=== PATIENT | male | born 1995 | race American Indian/Alaskan Native ===

== ENCOUNTER 2017-07-17 10:19 | Emergency (ER) | payer SELFPAY ==
[2017-07-17] MEDS ORDERED: ZOFRAN ODT PO ONE (16:19)
[2017-07-17] MEDS ORDERED: GUAIFENESIN DM SYRUP PO ONE (16:19)
[2017-07-17] MEDS ORDERED: MOTRIN PO ONE (16:19)
--- NOTE | 2017-07-17 16:21 | Emergency Department Report ---
- General Chief Complaint: Upper Respiratory Infection Stated Complaint: COUGHING UP BLOOD Time Seen by Provider: 07/17/17 15:45 Source: patient Mode of arrival: Ambulatory Limitations: No Limitations - History of Present Illness Initial Comments: 21-year-old male presents with complaint of 2 days of malaise fever chills cough sore throat and some intermittent nausea. Also complaining of body aches. Patient states he has had persistent cough for 2 days. Possible sick contacts at work as per patient. Patient is awake alert and oriented 3 not in acute distress. States he has been slightly feeling slightly more fatigued than usual lately. MD Complaint: fever, cough, sore throat, rhinorrhea, nasal congestion Onset/Timin -: days(s) Severity: mild Consistency: intermittent Improves With: nothing Worsens With: nothing Context: sick contacts Associated Symptoms: chills, myalgias, rhinorrhea, nasal congestion, cough Treatments Prior to Arrival: none - Related Data Previous Rx's Medication Instructions Recorded Last Taken Type Ibuprofen [Motrin 800 MG tab] 800 mg PO Q8H #30 tablet 08/16/14 Unknown Rx Albuterol Sulfate [Ventolin Hfa] 1 puff IH Q4H PRN #1 hfa.aer.ad 07/17/17 Unknown Rx Dextromethorphan/Benzocaine 1 each PO Q4H PRN #1 lozenge 07/17/17 Unknown Rx [Cepacol Sorethroat-Cough Juwan] Ibuprofen [Motrin] 800 mg PO Q8HR PRN #30 tablet 07/17/17 Unknown Rx Oseltamivir [Tamiflu] 75 mg PO BID #10 cap 07/17/17 Unknown Rx Phenylephrine/Dm/Acetaminop/GG 10 ml PO Q6H PRN #1 liquid 07/17/17 Unknown Rx [Mucinex Rstf-Mth-Pgxysxdpcl Lq] Allergies Allergy/AdvReac Type Severity Reaction Status Date / Time No Known Allergies Allergy Unverified 08/16/14 09:05 ED Review of Systems ROS: Stated complaint: COUGHING UP BLOOD Other details as noted in HPI Constitutional: malaise. denies: chills, fever Eyes: denies: eye pain, eye discharge, vision change ENT: congestion. denies: ear pain, throat pain Respiratory: cough. denies: shortness of breath, wheezing Cardiovascular: denies: chest pain, palpitations Endocrine: no symptoms reported Gastrointestinal: denies: abdominal pain, nausea, diarrhea Genitourinary: denies: urgency, dysuria Musculoskeletal: denies: back pain, joint swelling, arthralgia Skin: denies: rash, lesions Neurological: denies: headache, weakness, paresthesias Psychiatric: denies: anxiety, depression Hematological/Lymphatic: denies: easy bleeding, easy bruising ED Past Medical Hx - Past Medical History Previous Medical History?: Yes Hx Asthma: Yes - Surgical History Past Surgical History?: No - Social History Smoking Status: Current Every Day Smoker Substance Use Type: Alcohol, Non Opiate Pain, Other - Medications Home Medications: Home Medications Medication Instructions Recorded Confirmed Last Taken Type Ibuprofen [Motrin 800 MG tab] 800 mg PO Q8H #30 tablet 08/16/14 Unknown Rx Albuterol Sulfate [Ventolin Hfa] 1 puff IH Q4H PRN #1 hfa.aer.ad 07/17/17 Unknown Rx Dextromethorphan/Benzocaine 1 each PO Q4H PRN #1 lozenge 07/17/17 Unknown Rx [Cepacol Sorethroat-Cough Juwan] Ibuprofen [Motrin] 800 mg PO Q8HR PRN #30 tablet 07/17/17 Unknown Rx Oseltamivir [Tamiflu] 75 mg PO BID #10 cap 07/17/17 Unknown Rx Phenylephrine/Dm/Acetaminop/GG 10 ml PO Q6H PRN #1 liquid 07/17/17 Unknown Rx [Mucinex Uhad-Dfy-Zmqfxecbmi Lq] ED Physical Exam - General Limitations: No Limitations General appearance: alert, in no apparent distress - Head Head exam: Present: atraumatic, normocephalic - Eye Eye exam: Present: normal appearance, PERRL, EOMI - ENT ENT exam: Present: normal exam, mucous membranes moist - Neck Neck exam: Present: normal inspection - Respiratory Respiratory exam: Present: normal lung sounds bilaterally. Absent: respiratory distress - Cardiovascular Cardiovascular Exam: Present: regular rate, normal rhythm. Absent: systolic murmur, diastolic murmur, rubs, gallop - GI/Abdominal GI/Abdominal exam: Present: soft, normal bowel sounds - Rectal Rectal exam: Present: deferred - Extremities Exam Extremities exam: Present: normal inspection - Back Exam Back exam: Present: normal inspection - Neurological Exam Neurological exam: Present: alert, oriented X3, CN II-XII intact, normal gait - Psychiatric Psychiatric exam: Present: normal affect, normal mood - Skin Skin exam: Present: warm, dry, intact, normal color. Absent: rash ED Course Vital Signs 07/17/17 07/17/17 10:23 18:12 Temperature 98.5 F 98.4 F Pulse Rate 65 68 Respiratory 20 16 Rate Blood Pressure 125/73 Blood Pressure 132/74 [Left] O2 Sat by Pulse 99 100 Oximetry ED Medical Decision Making - Lab Data Result diagrams: 07/17/17 16:36 07/17/17 16:36 - Medical Decision Making A/P: Flulike illness 1-labs and chest x-ray unremarkable. Mild elevated CK, patient tolerating by mouth fluid and food without difficulty 2-I discussed with patient that his symptoms are suggestive of influenza. Flu swab negative however as per CDC guidelines should not delay offering treatment despite negative flu swab. I discussed with patient the benefits and side effects of taking Tamiflu. At this time patient elects to take Tamiflu based on our discussion of his clinical symptoms. 3-Mucinex when necessary, albuterol inhaler when necessary, Motrin when necessary, throat lozenges when necessary Critical care attestation.: If time is entered above; I have spent that time in minutes in the direct care of this critically ill patient, excluding procedure time. ED Disposition Clinical Impression: Flu-like symptoms, Viral syndrome Disposition: DC-01 TO HOME OR SELFCARE Is pt being admited?: No Does the pt Need Aspirin: No Condition: Stable Instructions: Influenza (ED), Viral Syndrome (ED) Prescriptions: Albuterol Sulfate [Ventolin Hfa] 1 puff IH Q4H PRN #1 hfa.aer.ad PRN Reason: Wheezing Dextromethorphan/Benzocaine [Cepacol Sorethroat-Cough Juwan] 1 each PO Q4H PRN #1 lozenge PRN Reason: Sore Throat Ibuprofen [Motrin] 800 mg PO Q8HR PRN #30 tablet PRN Reason: Fever Oseltamivir [Tamiflu] 75 mg PO BID #10 cap Phenylephrine/Dm/Acetaminop/GG [Mucinex Iwjp-Avj-Kubjxjsgsf Lq] 10 ml PO Q6H PRN #1 liquid PRN Reason: Cough Referrals: [facility] [Outside] - 3-5 Days [facility] [place] [facility] [place] - 3-5 Days Forms: Work/School Release Form(ED) Time of Disposition: 18:33
[2017-07-17 16:57] LABS: Basophils # (Auto) 0.1 K/mm3 (0.0-0.1); Basophils % (Auto) 0.8 % (0.0-1.8); Eosinophils # (Auto) 0.1 K/mm3 (0.0-0.4); Eosinophils % (Auto) 1.1 % (0.0-4.3); Hematocrit 48.9 % (35.5-45.6); Hemoglobin 16.5 gm/dl (11.8-15.2); Lymphocytes # (Auto) 2.3 K/mm3 (1.2-5.4); Lymphocytes % (Auto) 28.1 % (13.4-35.0); Mean Corpuscular HGB Conc 34 % (32-34); Mean Corpuscular Hemoglobin 33 pg (28-32); Mean Corpuscular Volume 98 fl (84-94); Monocytes # (Auto) 0.8 K/mm3 (0.0-0.8); Monocytes % (Auto) 9.6 % (0.0-7.3); Platelet Count 228 K/mm3 (140-440); Red Blood Count 5.01 M/mm3 (3.65-5.03); Red Cell Distribution Width 12.8 % (13.2-15.2)
[2017-07-17 17:11] LABS: BUN/Creatinine Ratio 14; Blood Urea Nitrogen 10 mg/dL (9-20); Calcium 10.1 mg/dL (8.4-10.2); Hemolysis Index 13
[2017-07-17] MEDS ORDERED: DUONEB *Not for PRN Use IH ONE (17:18)
--- NOTE | 2017-07-17 17:39 | XRay Report ---
FINAL REPORT EXAM: XR CHEST ROUTINE 2V HISTORY: worsening cough; PNA Study Comment : MIDDLE CHEST PAIN, COUGH W/BLOOD X 3 DAYS TECHNIQUE: 2 view examination of the chest PRIORS: None FINDINGS: There is no visible pulmonary consolidation, pleural effusion, or pneumothorax. Cardiac silhouette size is normal without vascular congestion. No visible acute displaced fracture in the regional skeleton. IMPRESSION: No evidence of acute cardiopulmonary disease
[2017-07-17 18:13] VITALS: BP 132/74
== END 2017-07-17 19:05 | disposition home or self-care (01) ==
LOC: ED 10:19
DX: B34.9 Viral infection, unspecified (principal); J45.909 Unspecified asthma, uncomplicated; F17.200 Nicotine dependence, unspecified, uncomplicated
CPT/HCPCS: 36415; 71046; 80048; 82550; 85025; 87116; 87400; 87430; 94640; Q0162

== ENCOUNTER 2019-08-23 17:40 | Emergency (ER) | payer SELFPAY ==
--- NOTE | 2019-08-23 17:52 | Event Note ---
ED Screening Note Date of service: 08/23/19 Time: 17:49 ED Screening Note: This is a 23 y.o. M. that presents to the ER with right wrist and ankle pain. Patient states he took a bad fall while playing basketball yesterday. Reports feeling his ankle twist when he fell. This initial assessment/diagnostic orders/clinical plan/treatment(s) is/are subject to change based on patients health status, clinical progression and re- assessment by fellow clinical providers in the ED. Further treatment and workup at subsequent clinical providers discretion. Patient/guardian urged not to elope from the ED as their condition may be serious if not clinically assessed and managed. Initial orders include: XR right wrist and right ankle
[2019-08-23 17:58] VITALS: BP 114/72
--- NOTE | 2019-08-23 19:25 | XRay Report ---
RIGHT WRIST 3 VIEWS INDICATION / CLINICAL INFORMATION: Fall with right wrist pain. COMPARISON: None available. FINDINGS: BONES / JOINT(S): The joint spaces are well-maintained. There is no evidence of fracture or dislocati on. SOFT TISSUES: No significant abnormality. ADDITIONAL FINDINGS: None. IMPRESSION: No acute abnormality. Signer Name: Vincent Edwards MD Signed: 08/23/2019 7:20 PM Workstation Name: [id number]
--- NOTE | 2019-08-23 19:26 | XRay Report ---
RIGHT ANKLE 2 VIEWS INDICATION / CLINICAL INFORMATION: Fall with right lateral ankle pain. COMPARISON: None available. FINDINGS: BONES / JOINT(S): The joint spaces are well-maintained. There is no evidence of fracture or dislocati on. SOFT TISSUES: No significant abnormality. ADDITIONAL FINDINGS: None. IMPRESSION: No acute abnormality. Signer Name: Vincent Edwards MD Signed: 08/23/2019 7:21 PM Workstation Name: [id number]
[2019-08-23] MEDS ORDERED: ONDANSETRON 4 MG ODT TAB PO ONE (19:56)
[2019-08-23] MEDS ORDERED: HYDROcodone/ACETAMINOPHEN 5-325 MG TAB PO ONE (19:56)
[2019-08-23] MEDS ORDERED: IBUPROFEN 600 MG TAB PO ONE (19:56)
--- NOTE | 2019-08-23 20:29 | Emergency Department Report ---
ED Fall HPI - General Chief Complaint: Extremity Injury, Lower Stated Complaint: RT WRIST/RT ANKLE PAIN Time Seen by Provider: 08/23/19 17:44 Source: patient Mode of arrival: Ambulatory - History of Present Illness Initial Comments: Patient is a 23-year-old male who presented to the ED with acute onset persistent severe right wrist and right ankle pain with mild swelling after he tripped and fell while playing basketball 2 days ago. Patient states that he is unable to bear weight on the right ankle and wrist. Patient denies head or neck injuries, loss of consciousness, syncope, seizures, nausea, vomiting, back pain, chest pain, shortness of breath, numbness and tingling or weakness of upper and lower extremities bilaterally or hip pain. 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 denies: headache, neck pain, numbness, weakness, chest paint, shortness of breath, abdominal pain, lightheaded, vertigo, confusion, other - Related Data Previous Rx's Medication Instructions Recorded Last Taken Type Ibuprofen [Motrin 800 MG tab] 800 mg PO Q8H #30 tablet 08/16/14 Unknown Rx Albuterol Sulfate [Ventolin Hfa] 1 puff IH Q4H PRN #1 hfa.aer.ad 07/17/17 Unknown Rx Dextromethorphan/Benzocaine 1 each PO Q4H PRN #1 lozenge 07/17/17 Unknown Rx [Cepacol Sorethroat-Cough Juwan] Oseltamivir [Tamiflu] 75 mg PO BID #10 cap 07/17/17 Unknown Rx Phenylephrine/Dm/Acetaminop/GG 10 ml PO Q6H PRN #1 liquid 07/17/17 Unknown Rx [Mucinex Gmgd-Ivz-Uyfqavtozq Lq] Acetaminophen/Codeine [Tylenol 1 tab PO Q6H PRN #12 tab 08/23/19 Unknown Rx /Codeine # 3 tab] Cyclobenzaprine [Flexeril] 10 mg PO Q8H PRN #21 tablet 08/23/19 Unknown Rx Ibuprofen [Motrin 800 MG tab] 800 mg PO Q8HR PRN #30 tablet 08/23/19 Unknown Rx Allergies Allergy/AdvReac Type Severity Reaction Status Date / Time No Known Allergies Allergy Unverified 08/16/14 09:05 ED Review of Systems ROS: Stated complaint: RT WRIST/RT ANKLE PAIN Other details as noted in HPI Constitutional: denies: chills, fever Eyes: denies: eye pain, eye discharge, vision change ENT: denies: ear pain, throat pain, congestion Respiratory: denies: cough, shortness of breath, wheezing Cardiovascular: denies: chest pain, palpitations, edema, syncope, paroxysmal nocturnal dyspnea Endocrine: no symptoms reported Gastrointestinal: denies: abdominal pain, nausea, diarrhea Genitourinary: denies: urgency, dysuria Musculoskeletal: joint swelling (Right ankle and right wrist pain and swelling), arthralgia (Right wrist and ankle pain with swelling), myalgia. denies: back pain Skin: denies: rash, lesions Neurological: denies: headache, weakness, paresthesias Psychiatric: denies: anxiety, depression Hematological/Lymphatic: denies: easy bleeding, easy bruising ED Past Medical Hx - Past Medical History Hx Asthma: Yes - Social History Smoking Status: Never Smoker Substance Use Type: None - Medications Home Medications: Home Medications Medication Instructions Recorded Confirmed Last Taken Type Ibuprofen [Motrin 800 MG tab] 800 mg PO Q8H #30 tablet 08/16/14 Unknown Rx Albuterol Sulfate [Ventolin Hfa] 1 puff IH Q4H PRN #1 hfa.aer.ad 07/17/17 Unknown Rx Dextromethorphan/Benzocaine 1 each PO Q4H PRN #1 lozenge 07/17/17 Unknown Rx [Cepacol Sorethroat-Cough Juwan] Oseltamivir [Tamiflu] 75 mg PO BID #10 cap 07/17/17 Unknown Rx Phenylephrine/Dm/Acetaminop/GG 10 ml PO Q6H PRN #1 liquid 07/17/17 Unknown Rx [Mucinex Vkik-Shb-Hsgmskemje Lq] Acetaminophen/Codeine [Tylenol 1 tab PO Q6H PRN #12 tab 08/23/19 Unknown Rx /Codeine # 3 tab] Cyclobenzaprine [Flexeril] 10 mg PO Q8H PRN #21 tablet 08/23/19 Unknown Rx Ibuprofen [Motrin 800 MG tab] 800 mg PO Q8HR PRN #30 tablet 08/23/19 Unknown Rx ED Physical Exam - General Limitations: No Limitations General appearance: alert, in no apparent distress - Head Head exam: Present: atraumatic, normocephalic, normal inspection - Eye Eye exam: Present: normal appearance, PERRL, EOMI Pupils: Present: normal accommodation - ENT ENT exam: Present: normal exam, normal orophraynx, mucous membranes moist, TM's normal bilaterally, normal external ear exam - Neck Neck exam: Present: normal inspection, full ROM. Absent: tenderness - Respiratory Respiratory exam: Present: normal lung sounds bilaterally. Absent: respiratory distress, wheezes, chest wall tenderness, accessory muscle use, decreased breath sounds - Cardiovascular Cardiovascular Exam: Present: regular rate, normal rhythm, normal heart sounds. Absent: systolic murmur, diastolic murmur, rubs, gallop - GI/Abdominal GI/Abdominal exam: Present: soft, normal bowel sounds. Absent: tenderness, starr ound, hyperactive bowel sounds, hypoactive bowel sounds - Extremities Exam Extremities exam: Present: normal inspection, full ROM, tenderness (Palpable right wrist and right ankle tenderness with mild swelling), normal capillary refill, joint swelling (Right wrist and ankle mild swelling and tenderness). Absent: pedal edema - Back Exam Back exam: Present: normal inspection, full ROM. Absent: tenderness, CVA tenderness (R), muscle spasm, paraspinal tenderness, vertebral tenderness - Neurological Exam Neurological exam: Present: alert, oriented X3, CN II-XII intact, normal gait, reflexes normal - Psychiatric Psychiatric exam: Present: normal affect, normal mood - Skin Skin exam: Present: warm, dry, intact, normal color. Absent: rash ED Course Vital Signs 08/23/19 08/23/19 17:56 20:22 Temperature 99 F Pulse Rate 71 Respiratory 18 20 Rate Blood Pressure 114/72 O2 Sat by Pulse 100 Oximetry ED Medical Decision Making - Radiology Data Radiology results: report reviewed, image reviewed Right wrist x-ray shows no acute fractures or subluxations. Right ankle x-ray also shows no acute fractures or subluxations. - Medical Decision Making This is a 23-year-old male who presented to the ED with acute onset persistent severe right wrist and right ankle pain with mild swelling after he tripped and fell while playing basketball 2 days ago. Patient states that he is unable to bear weight on the right ankle and wrist. In the ED, patient is alert and oriented x3 and is not in distress but appears to be in pain. Patient was treated for pain and the right wrist x-ray shows no acute fractures or subluxations. The right ankle x-ray also shows no acute fractures or subluxations. The right wrist was splinted with Velcro splint and the right ankle was also splinted with Eliseo wrap. Patient was discharged home on pain medications and muscle relaxants and advised follow-up with his primary care physician in 7 to 10 days for reevaluation or return to the ED immediately if symptoms get worse. - Differential Diagnosis right wrist sprain; right ankle sprain; wrist fracture; ankle fracture Critical care attestation.: If time is entered above; I have spent that time in minutes in the direct care of this critically ill patient, excluding procedure time. ED Disposition Clinical Impression: Severe sprain of right ankle Qualifiers: Encounter type: initial encounter Qualified Code(s): S93.401A - Sprain of unspecified ligament of right ankle, initial encounter Sprain of right wrist Qualifiers: Encounter type: initial encounter Qualified Code(s): S63.501A - Unspecified sprain of right wrist, initial encounter Disposition: TO HOME OR SELFCARE Is pt being admited?: No Does the pt Need Aspirin: No Condition: Stable Instructions: Wrist Injury (ED), Wrist Sprain (ED), Ankle Sprain (ED), Muscle Strain (ED) Additional Instructions: Take medication with food, drink plenty of fluids and follow-up with your primary care physician in 7 to 10 days for reevaluation. Return to the ED immediately if symptoms get worse. Prescriptions: Cyclobenzaprine [Flexeril] 10 mg PO Q8H PRN #21 tablet PRN Reason: Muscle Spasm Ibuprofen [Motrin 800 MG tab] 800 mg PO Q8HR PRN #30 tablet PRN Reason: Fever Acetaminophen/Codeine [Tylenol /Codeine # 3 tab] 1 tab PO Q6H PRN #12 tab PRN Reason: Pain , Severe (7-10) Referrals: [facility] [Outside] - 3-5 Days Forms: Work/School Release Form(ED) Time of Disposition: 20:30 Print Language: AZERI
== END 2019-08-23 21:17 | disposition home or self-care (01) ==
LOC: ED 17:40
DX: S93.401A Sprain of unspecified ligament of right ankle, initial encounter (principal); S63.501A Unspecified sprain of right wrist, initial encounter; J45.909 Unspecified asthma, uncomplicated; Z79.899 Other long term (current) drug therapy; X58.XXXA Exposure to other specified factors, initial encounter; Y93.89 Activity, other specified; Y92.89 Other specified places as the place of occurrence of the external cause; Y99.8 Other external cause status
CPT/HCPCS: Q0162